=== PATIENT | female | born 1995 | race Caucasian/White ===

== ENCOUNTER → 2018-05-14 14:13 | Outpatient (CLI) | payer SELFPAY ==
[2018-05-14 20:21] LABS: Chlamydia Trachomatis by PCR Negative (Negative); Neisserai gonorrhoeae by PCR Negative (Negative); Probe Check PASS; Sample Adequacy Control PASS; Specimen Processing Control PASS
[2018-05-19 13:28] LABS: HPV Reflexed? NOT INDICATED
== END ==
PROVIDERS: Visit Provider Obstetrics & Gynecology
DX: Z12.4 Encounter for screening for malignant neoplasm of cervix (principal); Z11.3 Encounter for screening for infections with a predominantly sexual mode of transmission
CPT/HCPCS: 87491; 87591; 88175; G0145

== ENCOUNTER → 2018-06-11 10:26 | Outpatient (CLI) | payer SELFPAY ==
[2018-06-11 11:12] LABS: Absolute Lymphocyte Count 1.86 X10^3/ul (0.83-4.51); Absolute Neutrophil Count 5.8 X10^3/uL (2.0-7.7); Basophil# 0.01 X10^3/uL; Basophil% 0.1 % (0-1); Color, Urine Yellow (Yellow); Eosinophil# 0.05 X10^3/uL; Eosinophils% 0.6 % (0-5); Glucose, Dipstick Normal (Normal); Hematocrit 38.1 % (37-47); Hemoglobin 13.2 g/dl (12.0-15.0); Ketone-Dipstick Negative (Negative); Leukocyte Esterase-Dipstick Negative /ul (Negative); Lymphocyte # 1.86 X10^3/ul (4.0); Lymphocyte % 22.8 % (19-41); Mean Corp Hgb Conc 34.6 g/gl (32-36); Mean Corpuscular Hgb 28.8 pg (27.0-32.0); Mean Platelet Vol. 10.1 fl (6.2-12.0); Monocyte# 0.47 X10^3/uL; Monocyte% 5.8 % (0-10); Neutrophil # 5.75 X10^3/uL (2.7-7.7); Neutrophil % 70.6 % (47-70); Nitrite-Dipstick Negative (Negative); Occult Blood-Urine 10 /ul (Negative); Platelet Count 259 K/mm3 (150-450); Protein-Dipstick 15 mg/dl (Negative); RBC Distribution Width CV 13.1 % (11.6-14.6); RBC Distribution Width SD 39.6 fl (35.1-43.9); Red Blood Count 4.59 M/mm3 (4.2-5.4); Urine Bilirubin Dipstick Negative (Negative); Urine Clarity Clear (Clear); Urine Urobilinogen Normal (Normal); White Blood Count 8.2 K/mm3 (4.4-11.0)
[2018-06-11 11:14] LABS: POSITIVE COUNT NO; POSITIVE DIFFERENTIAL NO; POSITIVE MORPHOLOGY NO
[2018-06-11 11:34] LABS: Free T3 2.7 pg/mL (2.18-3.98); Glucose Challenge Gest 1H 50g 94 mg/dL (70-140); T4 Free Direct 0.84 ng/dL (0.76-1.46); Thyroid Stim Hormone (TSH) 1.28 uIU/mL (0.358-3.74)
[2018-06-11 12:14] LABS: HIV - WCH Non-Reactive (Nonreactive); Rubella IgG 315.8 IU/mL; Vitamin D,25 Hydroxy 43.8 ng/mL (29.95-100.01)
[2018-06-12 13:49] LABS: HEPATITIS B SURFACE AG Negative (Negative); Hep C Antibodies 0.1 s/co ratio (0.0-0.9)
[2018-06-16 13:21] LABS: HPV Reflexed? NOT INDICATED
[2018-06-18 01:33] LABS: Prenatal RPR NONREACTIVE (NONREACTIVE)
== END ==
LOC: WOBLAB 10:26 → LAB 12:13 → LABSPEC 12:14
PROVIDERS: Family Provider Family Medicine; PCP Family Medicine; Visit Provider Obstetrics & Gynecology
DX: Z12.4 Encounter for screening for malignant neoplasm of cervix (principal); Z34.81 Encounter for supervision of other normal pregnancy, first trimester
CPT/HCPCS: 36415; 81002; 82306; 82950; 84439; 84443; 84481; 85025; 86703; 86762; 86803; 87340; 88175; G0145

== ENCOUNTER → 2018-10-08 08:27 | Outpatient (CLI) | payer SELFPAY ==
[2018-10-08 11:06] LABS: Hematocrit 31.3 % (37-47); Hemoglobin 10.7 g/dl (12.0-15.0); Mean Corp Hgb Conc 34.2 g/gl (32-36); Mean Corpuscular Hgb 28.6 pg (27.0-32.0); Mean Corpuscular Volume 83.7 fL (81-99); Mean Platelet Vol. 10.5 fl (6.2-12.0); Platelet Count 237 K/mm3 (150-450); RBC Distribution Width CV 13.2 % (11.6-14.6); RBC Distribution Width SD 38.8 fl (35.1-43.9); Red Blood Count 3.74 M/mm3 (4.2-5.4); White Blood Count 8.8 K/mm3 (4.4-11.0)
[2018-10-08 11:08] LABS: Scan Indicated on CBC? Y/N NO
[2018-10-08 11:22] LABS: Free T3 2.4 pg/mL (2.18-3.98); Glucose Challenge Gest 1H 50g 99 mg/dL (70-140); Thyroid Stim Hormone (TSH) 3.37 uIU/mL (0.358-3.74)
--- OUTSIDE RECORDS SUMMARY | 2018-12-03 03:13 | XMS RPT_ITS ---
:1995 Author Organization OHIP Care Team Providers Name Role Phone Nelia Trejo Attending Unavailable Nelia Trejo Attending Unavailable Jett [facility] Unavailable Nelia Trejo Referring Unavailable Nelia Trejo Attending Unavailable PROBLEMS PROBLEMS DATE TYPE CONDITION / CODE ATTENDING STATUS SOURCE 10/08/2018 Unknown Z34.82 - Encounter Sabiha Trejo for supervision of [facility] other normal Hospital , second Repository trimester / Z34.82(ICD-10) 06/11/2018 Unknown Z12.4 - Encounter Sabiha Trejo for screening for [facility] malignant neoplasm Hospital of cervix / Repository Z12.4(ICD-10) 05/14/2018 Unknown Z32.01 - Encounter Sabiha Trejo for test, [facility] result positive / Hospital Z32.01(ICD-10) Repository 05/14/2018 Unknown Z11.3 - Encounter Sabiha Trejo for screening for [facility] infections with a Hospital predominantly Repository sexual mode of transmission / Z11.3(ICD-10) PROCEDURES PROCEDURES No Procedure Records FoundRESULTS RESULTS CBC-COMPLETE BLOOD CNT Collected: 10/08/2018 Status: F Source: ALICE NO DIFF 8:31 AM [facility] HOSPITAL REPOSITORY TYPE CODE TESTS RESULT OUT OF RANGE REFERENCE UNITS LAB L100.1000 4.4-11.0 K/mm3 Normal WBC 8.8 LAB L100.1200 4.2-5.4 M/mm3 Low RBC 3.74 LAB L100.1300 12.0-15.0 g/dl Low HGB 10.7 LAB L100.1400 37-47 % Low HCT 31.3 LAB L100.1500 81-99 fL Normal MCV 83.7 LAB L100.1600 27.0-32.0 pg Normal MCH 28.6 LAB L100.1700 32-36 g/gl Normal MCHC 34.2 LAB L100.1810 11.6-14.6 % Normal RDW CV 13.2 LAB L100.1820 35.1-43.9 fl Normal RDW SD 38.8 LAB L100.1900 150-450 K/mm3 Normal PLT 237 LAB L100.2000 6.2-12.0 fl Normal MPV 10.5 Performed By: #### L100.0500 #### [facility] [address] [place], [place], [address] GLUCOSE CHALLENGE GEST Collected: 10/08/2018 Status: F Source: ALICE 1H 50G 8:31 AM [facility] REPOSITORY TYPE CODE TESTS RESULT OUT OF RANGE REFERENCE UNITS LAB L501.0250 70-140 mg/dL Normal GLU GEST 99 50g 1H Performed By: #### L501.0250, L501.98983, L501.9520, L506.0400 #### [facility] [address] [place], [place], [address] FREE T3 Collected: 10/08/2018 Status: F Source: ALICE 8:31 AM [facility] REPOSITORY TYPE CODE TESTS RESULT OUT OF RANGE REFERENCE UNITS LAB L501.56396 2.18-3.98 pg/mL Normal FREE T3 2.4 Performed By: #### L501.0250, L501.25192, L501.9520, L506.0400 #### [facility] [address] [place], [place], [address] THYROID STIM HORMONE Collected: 10/08/2018 Status: F Source: ALICE (TSH) 8:31 AM [facility] REPOSITORY TYPE CODE TESTS RESULT OUT OF RANGE REFERENCE UNITS LAB L501.9520 0.358-3.74 uIU/mL Normal TSH 3.37 Performed By: #### L501.0250, L501.81025, L501.9520, L506.0400 #### [facility] [address] [place], [address] T4 FREE DIRECT Collected: 10/08/2018 Status: F Source: ALICE 8:31 AM [facility] REPOSITORY TYPE CODE TESTS RESULT OUT OF RANGE REFERENCE UNITS LAB L506.0400 0.76-1.46 ng/dL Normal T4 FREE 0.80 DIRECT Performed By: #### L501.0250, L501.89559, L501.9520, L506.0400 #### [facility] [address] [place], [address] URINALYSIS, ROUTINE Collected: 06/11/2018 Status: F Source: ALICE (DIPSTICK) 10:20 AM [facility] REPOSITORY Order Comment: How was Urine Obtained? CLEAN CATCH TYPE CODE TESTS RESULT OUT OF RANGE REFERENCE UNITS LAB L400.3000 Yellow COLOR Normal Yellow LAB L400.3050 Clear Normal CLARITY Clear LAB L400.3200 Normal mg/dl Normal GLUCOSE, UR Normal LAB L400.3300 Negative mg/dL Normal BILIRUBIN URINE Negative LAB L400.3400 Negative mg/dl Normal KETONE UR Negative LAB L400.3465 1.002-1.030 Normal SP.GR. DIPSTX 1.010 LAB L400.3550 5.0 - 8.0 pH UR Normal 7.0 LAB L400.3600 Negative mg/dl High PROT 15 DIPSTX LAB L400.3700 Normal mg/dl Normal UROBILI Normal LAB L400.3750 Negative Normal NITRITE UR Negative LAB L400.3780 Negative /ul High 10 OCCULT BLOOD-UR LAB L400.3800 Negative /ul LEUK Normal ESTERASE Negative Performed By: #### L400.2010 #### [facility] [address] [place], [address] CBC W/DIFF, AUTOMATED Collected: 06/11/2018 Status: F Source: ALICE 10:20 AM [facility] REPOSITORY TYPE CODE TESTS RESULT OUT OF RANGE REFERENCE UNITS LAB L100.1000 4.4-11.0 K/mm3 Normal WBC 8.2 LAB L100.1200 4.2-5.4 M/mm3 Normal RBC 4.59 LAB L100.1300 12.0-15.0 g/dl Normal HGB 13.2 LAB L100.1400 37-47 % Normal HCT 38.1 LAB L100.1500 81-99 fL Normal MCV 83.0 LAB L100.1600 27.0-32.0 pg Normal MCH 28.8 LAB L100.1700 32-36 g/gl Normal MCHC 34.6 LAB L100.1810 11.6-14.6 % Normal RDW CV 13.1 LAB L100.1820 35.1-43.9 fl Normal RDW SD 39.6 LAB L100.1900 150-450 K/mm3 Normal PLT 259 LAB L100.2000 6.2-12.0 fl Normal MPV 10.1 LAB L100.2100 47-70 % High NEUT% 70.6 LAB L100.2200 19-41 % Normal LY% 22.8 LAB L100.2300 0-10 % Normal MONO% 5.8 LAB L100.2400 0-5 % Normal EO% 0.6 LAB L100.2500 0-1 % Normal BASO% 0.1 LAB L100.2550 0.0-0.9 % Normal IM GRAN % 0.100 Result Comment: IG% - Immature Granulocytes (promyelocytes, myelocytes and metamyelocytes) > 1% indicates that a LEFT SHIFT is Present. LAB L100.2620 2.0-7.7 X10 3/uL Normal Absolute Neut 5.8 LAB L100.2720 0.83-4.51 X10 3/ul Normal Absolute Lymph 1.86 Performed By: #### L100.0100 #### [facility] [address] [place], [place], [address] GLUCOSE CHALLENGE GEST Collected: 06/11/2018 Status: F Source: ALICE 1H 50G 10:20 AM [facility] REPOSITORY TYPE CODE TESTS RESULT OUT OF RANGE REFERENCE UNITS LAB L501.0250 70-140 mg/dL Normal GLU GEST 94 50g 1H Performed By: #### L501.0250, L501.54392, L501.9520, L506.0400 #### [facility] [address] [place], [address] FREE T3 Collected: 06/11/2018 Status: F Source: ALICE 10:20 AM [facility] REPOSITORY TYPE CODE TESTS RESULT OUT OF RANGE REFERENCE UNITS LAB L501.66743 2.18-3.98 pg/mL Normal FREE T3 2.7 Performed By: #### L501.0250, L501.09866, L501.9520, L506.0400 #### [facility] [address] [place], [address] THYROID STIM HORMONE Collected: 06/11/2018 Status: F Source: ALICE (TSH) 10:20 AM [facility] REPOSITORY TYPE CODE TESTS RESULT OUT OF RANGE REFERENCE UNITS LAB L501.9520 0.358-3.74 uIU/mL Normal TSH 1.28 Performed By: #### L501.0250, L501.77116, L501.9520, L506.0400 #### [facility] [address] [place], [address] T4 FREE DIRECT Collected: 06/11/2018 Status: F Source: HOBART 10:20 AM [facility] REPOSITORY TYPE CODE TESTS RESULT OUT OF RANGE REFERENCE UNITS LAB L506.0400 0.76-1.46 ng/dL Normal T4 FREE 0.84 DIRECT Performed By: #### L501.0250, L501.10172, L501.9520, L506.0400 #### [facility] [address] [place], [address] T AND S-NO Collected: 06/11/2018 Status: F Source: ALICE CHARGE W/PNP 10:20 AM [facility] REPOSITORY Order Comment: Reason for Type AND Screen/Red Cells: Surgery? N TYPE CODE TESTS RESULT OUT OF RANGE REFERENCE UNITS LAB B10.0800 O Normal BLOOD POSITIVE TYPE GEL LAB B100.4050 Normal Ab SCREEN NEGATIVE GEL Performed By: #### B100.7550 #### [facility] [address] [place], [address] VITAMIN D,25 HYDROXY Collected: 06/11/2018 Status: F Source: ALICE 10:20 AM [facility] REPOSITORY TYPE CODE TESTS RESULT OUT OF RANGE REFERENCE UNITS LAB L506.1000 29.95-100.01 ng/mL Normal Vitamin D 43.8 25-OH Result Comment: Vitamin D 25(OH) Status Range Deficiency <20 ng/mL (50nmol/L) Insuffciency 20 - 30 ng/mL (50 - 75 nmol/L) Sufficiency 30 - 100 ng/mL (75 - 250 nmol/L) Toxicity >100 ng/mL (>250 nmol/L) Performed By: #### L506.1000, L509.4000, L3890.6005 #### [facility] [address] [place], [address] RUBELLA IGG Collected: 06/11/2018 Status: F Source: ALICE 10:20 AM [facility] REPOSITORY TYPE CODE TESTS RESULT OUT OF RANGE REFERENCE UNITS LAB L509.4000 IU/mL Normal Rubella IgG 315.8 Result Comment: Antibody results Interpretation of Immune Status < 5 IU/ml Presumed Non-immune 5 - < 10 IU/ml Equivocal > or = 10 IU/ml Presumed Immune Performed By: #### L506.1000, L509.4000, L3890.6005 #### [facility] [address] [place], [address] HIV - WCH Collected: 06/11/2018 Status: F Source: ALICE 10:20 AM [facility] REPOSITORY TYPE CODE TESTS RESULT OUT OF RANGE REFERENCE UNITS LAB L3890.6005 Nonreactive Normal HIV - [facility] Non-Reactive Performed By: #### L506.1000, L509.4000, L3890.6005 #### [facility] [address] [place], [address] HEPATITIS B SURFACE Collected: 06/11/2018 Status: F Source: ALICE AG 10:20 AM [facility] REPOSITORY TYPE CODE TESTS RESULT OUT OF RANGE REFERENCE UNITS LAB L3100.0400 Negative Normal HB Negative SURF AG Result Comment: Performed at: - [facility] [address] [id number] Carbon Brushes Assembler: Mike Griffin PhD, Phone: [phone] Performed By: #### L3100.0390, L3100.0625 #### [facility] (refer to report for specific site) refer to report for address and phone number HEPATITIS C ANTIBODIES Collected: 06/11/2018 Status: F Source: HOBART 10:20 AM [facility] REPOSITORY TYPE CODE TESTS RESULT OUT OF RANGE REFERENCE UNITS LAB L3100.0650 0.0-0.9 s/co ratio Normal HEP C AB 0.1 Result Comment: Negative: < 0.8 Indeterminate: 0.8 - 0.9 Positive: > 0.9 The CDC recommends that a positive HCV antibody result be followed up with a HCV Nucleic Acid Amplification test (780227). Performed By: #### L3100.0390, L3100.0625 #### [facility] (refer to report for specific site) refer to report for address and phone number RPR Collected: 06/11/2018 Status: F Source: HOBART 10:20 AM [facility] REPOSITORY TYPE CODE TESTS RESULT OUT OF REFERENCE UNITS RANGE LAB L700.5100 NONREACTIVE Normal RPR NONREACTIVE Performed By: #### L700.5100 #### [facility] [address] [place], [address] PAP I-G W/RFX Collected: 06/11/2018 Status: F Source: HOBART HRHPV-APTIMA 9:20 AM [facility] REPOSITORY Order Comment: CYTOLOGY INFORMATION: - CLINICAL INFORMATION: - DATE LMP/MENOPAUSE: LMP 03/22/18 - COLLECTION VIAL: Thin Prep Vial - APARTMENT COMMUNITY MANAGER SOURCE: CERVICAL/ENDOCERVICAL - COLLECTION TECHNIQUE: BRUSH/SPATULA Specimen Comment: [id number] Specimen Comment: No. of containers..01 ThinPrep Vial TYPE CODE TESTS RESULT OUT OF RANGE REFERENCE UNITS LAB L7400.0800 . Normal DIAGN Comment Result Comment: NEGATIVE FOR INTRAEPITHELIAL LESION AND MALIGNANCY. LAB L7400.0900 . Normal ADEQ Comment Result Comment: Satisfactory for evaluation. Endocervical and/or squamous metaplastic cells (endocervical component) are present. LAB L7400.1400 . Normal PERFORM Comment Result Comment: Isabela Ordoñez, Skating Rink Manager (ASCP) LAB L7400.2575 . Normal TEST METHOD Comment Result Comment: This liquid based ThinPrep(R) pap test was screened with the use of an image guided system. LAB L7400.2600 . Normal . COMM LAB L7400.2700 . Normal PAPSMR Comment Result Comment: The Pap smear is a screening test designed to aid in the detection of premalignant and malignant conditions of the uterine cervix. It is not a diagnostic procedure and should not be used as the sole means of detecting cervical cancer. Both false-positive and false-negative reports do occur. LAB L7400.2800 . Normal HPV RFLX Comment Result Comment: The HPV DNA reflex criteria were not met with this specimen result therefore, no HPV testing was performed. Performed at: [facility] [id number] [employer] Brushes Assembler: Bernie Landa MD, Phone: [phone] Performed By: #### L7400.0353 #### [facility]er [facility] for [facility] refer to report for address and phone number CT/NG WCH BY PCR Collected: 05/14/2018 Status: F Source: HOBART 10:10 AM [facility] REPOSITORY TYPE CODE TESTS RESULT OUT OF RANGE REFERENCE UNITS LAB L8200.2100 Negative Normal Chlam Negative Trac PCR LAB L8200.2200 Negative Normal NG by Negative PCR Performed By: #### L8200.2000 #### [facility] [address] [place], [place], [address] PAP I-G W/RFX Collected: 05/14/2018 Status: F Source: HOBART HRHPV-APTIMA 10:10 AM [facility] REPOSITORY Order Comment: CYTOLOGY INFORMATION: - CLINICAL INFORMATION: - DATE LMP/MENOPAUSE: 03/12/18 LMP - COLLECTION VIAL: Thin Prep Vial - APARTMENT COMMUNITY MANAGER SOURCE: CERVICAL/ENDOCERVICAL - COLLECTION TECHNIQUE: BRUSH/SPATULA Specimen Comment: [id number] Specimen Comment: No. of containers..01 ThinPrep Vial TYPE CODE TESTS RESULT OUT OF RANGE REFERENCE UNITS LAB L7400.0800 . Normal DIAGN Comment Result Comment: UNSATISFACTORY FOR EVALUATION. LAB L7400.0900 . Normal ADEQ Comment Result Comment: Specimen processed and examined but unsatisfactory for evaluation of epithelial abnormality because of insufficient cellularity. LAB L7400.1300 . Normal RECOMM Comment Result Comment: Suggest follow up as clinically appropriate. LAB L7400.1400 . Normal PERFORM Comment Result Comment: Nish Umana, Skating Rink Manager (ASC) LAB L7400.1500 . Normal QC Comment REV Result Comment: Amy Santamaria, Supervisory Skating Rink Manager ([facility]) LAB L7400.2575 . Normal TEST METHOD Comment Result Comment: This liquid based ThinPrep(R) pap test was screened with the use of an image guided system. LAB L7400.2600 . Normal . COMM LAB L7400.2700 . Normal PAPSMR Comment Result Comment: The Pap smear is a screening test designed to aid in the detection of premalignant and malignant conditions of the uterine cervix. It is not a diagnostic procedure and should not be used as the sole means of detecting cervical cancer. Both false-positive and false-negative reports do occur. LAB L7400.2800 . Normal HPV RFLX Comment Result Comment: The HPV DNA reflex criteria were not met with this specimen result therefore, no HPV testing was performed. Performed at: [address] [id number] Carbon Brushes Assembler: Bernie Landa MD, Phone: [phone] Performed By: #### L7400.0353 #### [facility] (refer to report for specific site) refer to report for address and phone number ALLERGIES ALLERGIES No Allergies Records FoundENCOUNTERS ENCOUNTERS ADMIT/DISCHARGE ACCOUNT ADMITTING ENCOUNTER LOCATION SOURCE NUMBER CLASS 10/08/2018 [id number] Ambulatory [facility] 7 [facility] ing:WOBLAB Repository 06/11/2018 [id number] [facility] 2 [facility] ing:[facility] Repository 05/14/2018 [id number] [facility] 6 [facility] ing:[facility] Repository PAYERS PAYERS ENCOUNTER GUARANTOR PAYER SUBSCRIBER SOURCE 10/08/2018 [facility] [place] [id number] Insurance:SELF PAY [facility], [place] Number: Effective Repository [id number]: [phone]) Date:2018-10-08 [id number] () 06/11/2018 CARIE Khan Primary NOT GIVENUNK [place] [id number] Insurance:SELF PAY [facility], [place] Number: Effective Repository [phone]: [phone] Date:2018-06-11 [id number] () 05/14/2018 CARIE Khan Primary NOT GIVENUNK [place] [id number] Insurance:SELF PAY [facility] Number: Effective Repository [phone]: [phone] Date:2018-05-14 [id number] ()
== END ==
PROVIDERS: Visit Provider Obstetrics & Gynecology
DX: Z34.82 Encounter for supervision of other normal pregnancy, second trimester (principal)
CPT/HCPCS: 36415; 82950; 84439; 84443; 84481; 85027

== ENCOUNTER → 2018-11-08 14:45 | Outpatient (CLI) | payer SELFPAY ==
[2018-11-08 16:24] LABS: Free T3 2.5 pg/mL (2.18-3.98); T4 Free Direct 0.94 ng/dL (0.76-1.46); Thyroid Stim Hormone (TSH) 1.83 uIU/mL (0.358-3.74)
== END ==
PROVIDERS: Visit Provider Obstetrics & Gynecology
DX: O99.283 Endocrine, nutritional and metabolic diseases complicating pregnancy, third trimester (principal); E03.9 Hypothyroidism, unspecified; Z3A.00 Weeks of gestation of pregnancy not specified
CPT/HCPCS: 36415; 84439; 84443; 84481

== ENCOUNTER → 2018-11-22 16:54 | Outpatient (CLI) | payer SELFPAY | PROVIDERS: Visit Provider Obstetrics & Gynecology | DX: Z36.85 Encounter for antenatal screening for Streptococcus B (principal) | CPT/HCPCS: 87081 ==

== ENCOUNTER → 2018-12-13 16:57 | Outpatient (CLI) | payer SELFPAY ==
[2018-12-13 17:24] LABS: Protein, Urine (Random) 15.1 mg/dL (<11.9)
== END ==
PROVIDERS: Visit Provider Obstetrics & Gynecology
DX: Z34.83 Encounter for supervision of other normal pregnancy, third trimester (principal)
CPT/HCPCS: 82570; 84156

== ENCOUNTER 2018-12-17 10:30 | Inpatient (IN) | payer SELFPAY ==
[2018-12-17 10:40] VITALS: O2SAT 94
[2018-12-17] MEDS: Lactated Ringers 1,000 ML 50 ML IV (10:45)
[2018-12-17 11:15] VITALS: BMI 51.2
[2018-12-17 11:37] LABS: Mean Corp Hgb Conc 33.3 g/gl (32-36); Mean Corpuscular Hgb 28.1 pg (27.0-32.0); Mean Corpuscular Volume 84.3 fL (81-99); Mean Platelet Vol. 10.4 fl (6.2-12.0); Platelet Count 239 K/mm3 (150-450); RBC Distribution Width CV 13.6 % (11.6-14.6); RBC Distribution Width SD 39.7 fl (35.1-43.9); Red Blood Count 3.56 M/mm3 (4.2-5.4); Scan Indicated on CBC? Y/N NO; White Blood Count 8.8 K/mm3 (4.4-11.0)
[2018-12-17 11:44] LABS: International Normalized Ratio 0.9; Prothrombin Time (Protime)PT. 12.6 SECONDS (11.7-14.9)
[2018-12-17 11:45] LABS: Partial Thromboplast Time 30.4 Seconds (24.1-36.2)
[2018-12-17] MEDS: miSOPROStol 25 MCG TABLET PO ×3 (11:52→16:24)
[2018-12-17 12:04] LABS: AST(SGOT) 13 U/L (15-37); Alanine Aminotransfer ALT/SGPT 18 U/L (13-56); Creatinine, Serum 0.77 mg/dL (0.55-1.02); EST Glomerular Filtration Rate 100 mL/min (>60); Est Glom Filt Rate - Afr Amer 121 mL/min (>60); Estimated Creatinine Clearance 111.44 ml/min; Uric Acid 4.6 mg/dL (2.6-6.0)
[2018-12-17 13:53] LABS: Protein, Urine (Random) 7.3 mg/dL (<11.9); Protein:Creat Ratio 174 mg/g CRE (0-200)
--- NOTE | 2018-12-17 16:10 | PCM.HP.OB ---
- Problem List (1) 39 weeks gestation of Status: Acute (2) Gestational hypertension Status: Acute Qualifiers: Trimester: third trimester Qualified Code(s): O13.3 - Gestational [-induced] hypertension without significant proteinuria, third trimester History Date of Admission: 12/17/18 Final PALMA: 12/20/18 Gestational age: 39 Weeks and 4 Days History of this : This is a 23 year-old, G [1], P [0], at 39 weeks gestational age presents for induction of labor for gestational hypertension. Medical History: Medical History (Last Updated 12/17/18 @ 16:12 by Nelia Trejo MD) History of gluten sensitivity Hypothyroidism E03.9 Allergies No Known Allergies Allergy (Verified 12/17/18 11:15) Home Medications: Home Medications Levothyroxine [Synthroid] 75 mcg PO DAILY 12/17/18 Vits [Prenatabs FA ] 1 tab PO DAILY 12/17/18 Smoking Status: Former smoker Alcohol: None Number of Fetus(es): 1 Heart Tracin, moderate variability, + accelerations, no decelerations. TOCO Analysis: no contractions History Past Pregnancies: Past Pregnancies Delivery Date Name GA/Weeks Outcome Route Weight Infant Gender Labor Length Anesthesia Delivery Location Provider FOB Labs: Mom's Problem List Problem Status Onset Code 39 weeks gestation of Acute Z3A.39 Gestational hypertension Acute O13.9 Mom's Labs & Results 12/17/18 12/17/18 12/17/18 10:45 10:45 10:45 WBC 8.8 RBC 3.56 L Hgb 10.0 L Hct 30.0 L MCV 84.3 MCH 28.1 MCHC 33.3 RDW 13.6 RDW Differential 39.7 Plt Count 239 MPV 10.4 PT 12.6 INR 0.9 APTT 30.4 Creatinine Estim Creat Clear Calc Est GFR (MDRD) Af Amer Est GFR (MDRD) Non-Af Uric Acid AST ALT U Random Total Protein Urine Creatinine Protein/Creatinin Ratio Blood Type O POSITIVE Antibody Screen NEGATIVE 12/17/18 12/17/18 10:45 13:15 WBC RBC Hgb Hct MCV MCH MCHC RDW RDW Differential Plt Count MPV PT INR APTT Creatinine 0.77 Estim Creat Clear Calc 111.44 Est GFR (MDRD) Af Amer 121 Est GFR (MDRD) Non-Af 100 Uric Acid 4.6 AST 13 L ALT 18 U Random Total Protein 7.3 Urine Creatinine 41.90 Protein/Creatinin Ratio 174 Blood Type Antibody Screen Course Did the patient receive Yes care? Labs Blood Type: O RH: POSITIVE RPR/VDRL/Syphilis Nonreactive Rubella status Immune HbSAg Negative Date Done: 06/11/18 Chlamydia Negative Gonorrhea Negative HIV/AIDS Non-Reactive Group B Strep: Negative Current Obstetrical History Gestational Diabetes No Incompetent Cervix No Infertility No IUGR No Macrosomia No Hypertension/Pre-eclampsia Yes: no medication Placenta Previa/Abruption No PTL/PROM No Uterine anomaly No Oligohydramnios No Polyhydramnios No Multiple gestation No Past Medical History Asthma No Diabetes No Hypertension No Heart disease No Mitral valve prolapse No Neurologic/Seizure disorder/ No Migraines Kidney disease No Liver disease No Varicosities No Clotting disorders/Hx of DVT No Thyroid Dysfunction Yes: Hypothyroidism, on synthroid Other medical diseases No Psychiatric disorders No Major trauma No Abnormal PAP smear No Sleep apnea No Mammogram in the last 2 years No Social History Marital Status: Alleged father Basim Camargo Hx Smoking Yes Smoking Status Former smoker Expected Infant Delivery Method: Spontaneous Vaginal Describe any other labor & delivery plans:: continuous monitoring Number of Visits: 12 Review of Systems HEENT: Denies: Visual Changes Cardiovascular: Reports: Edema Gastrointestinal: Denies: Abdominal Pain, Nausea, Vomiting Gynecological: Reports: - - cramping. Denies: Vaginal bleeding Neurological: Denies: Headaches Physical Exam Vitals: Vital Signs Pulse Ox 94 12/17/18 10:40 General: Alert, Oriented x3, Cooperative, No apparent distress HEENT: Atraumatic, Normocephalic Cardiovascular: Regular rate, Regular Rhythm Lungs: Normal air movement Abdomen: Soft, Non Tender, Non-Distended, Gravid Extremities:: Other - +2 b/l LE edema, no clonus, + 2 b/l LE DTRs Neurological: Neuro grossly intact Presentation: Cephalic Cervix Dilation (cm): 1 Station: -3 Effacement (%): 0 - firm, posterior Assessment/Plan All Active Problems 39 weeks gestation of (Acute) Gestational hypertension (Acute) This is a 23 year-old, G [1], P [0], at 39 weeks gestational age with gestational hypertension, Cat I FHR -Admit for induction -No evidence of preeclampsia -Cytotec for unfavorable cervix
[2018-12-17] MEDS: 0.9% Saline Lock 10 ML Syringe IV (21:54)
[2018-12-17] MEDS: 0.9% Normal Saline 100 ML IV.SOLN. INTRA-UTER (22:00)
[2018-12-17] MEDS: miSOPROStol 50 MCG TABLET PO (23:32)
[2018-12-18] MEDS: DiphenhydrAMINE 25 MG Capsule 50 MG PO (00:26)
[2018-12-18] MEDS: Oxytocin 30 units/NS 500 ml 30 UNITS/500 ML IV.SOLN IV ×2 (05:56→22:35)
[2018-12-18] MEDS: 0.9% Saline Lock 10 ML Syringe IV (05:58)
[2018-12-18] MEDS: Levothyroxine 75 MCG Tablet PO (07:02)
[2018-12-18 09:27] LABS: ROM Internal Control Test YES-OK TO RESULT pt. (Internal QC)
[2018-12-18 09:28] LABS: ROM Patient Test POSITIVE (Negative); Record Kit Lot#, ROM+ J7836
--- NOTE | 2018-12-18 11:31 | PCM.PN.BLA ---
Progress Note LABOR PROGRESS NOTE Patient willing to reattempt collins bulb. AVSS GEN - NAD, AAO x 3 FHR 135, moderate variability, + accelerations, no decelerations TOCO 2/10 min SVE 1.5/50/-3, moderate and midposition AP: 23yo G1 @ 39 5/7wga, IOL for gHTN on pitocin, Cat I FHR -ROM plus positive -Collins bulb placed - 30cc of NS, pt tolerated placement well. -Will continue pitocin in interim.
--- NOTE | 2018-12-18 11:38 | PCM.PN.BLA ---
Progress Note PROGRESS NOTE Denies headache, vision changes, shortness of breath. Has mild contractions. No further leaking of fluid. AVSS GEN - NAD, AAO x 3 FHR 135, moderate variability, + accelerations, no decelerations TOCO 2/10 min SVE 1.5/50/-3, moderate and midposition A/P: 23yo G1 @ 39 5/7wga, IOL for ghtn -No si/sx preeclampsia -No further fluid leaking noted by patient or nursing staff since last exam. Will send ROM plus and if negative, consider induction break if reaches 20mu/min pitocin. If positive, will consider reattempting collins bulb.
[2018-12-18] MEDS: Lactated Ringers 1,000 ML 50 ML IV (15:35)
--- NOTE | 2018-12-18 21:57 | PCM.PN.BLA ---
Progress Note LABOR PROGRESS NOTE Dorothy reports fatigue. OOB. Denies headache, vision changes, upper abdominal pain, SOB. + contractions are mild. AVSS GEN - NAD, AAO x 3 FHR 135, moderate variability, + accelerations, no decelerations TOCO 2-3/10 min SVE 4.5/60/-3 approx 1h ago per RN exam A/P: 23yo G1 @ 39 5/7wga, IOL for gHTN -s/p misoprostol, collins bulb on pitocin -Discussed with patient indications for section for failed induction. At this time, given pitocin 20mu/min for several hours I recommend pitocin break. r/b reviewed. Following discussion, pt in agreement. Will d/c and resume later this evening. -Reviewed si/sx preeclampsia. -Maternal and statuses reassuring
[2018-12-19] VITALS (27 sets, daily range): BP systolic 67–176; BP diastolic 38–109; PULSE 93–120; RESP 17–22; TEMP 36.1–37.4; O2SAT 93–100
[2018-12-19] MEDS: Labetalol 200 MG Tablet PO (05:09)
[2018-12-19] MEDS: Labetalol 20 MG/4 ML Vial IV (06:23)
--- NOTE | 2018-12-19 06:23 | PCM.PN.BLA ---
Progress Note LABOR PROGRESS NOTE Dorothy relates she feels contractions in her lower back and she is uncomfortable. Denies headache, vision changes. BP 165-180/88-99 HR 97-15 GEN - appears uncomfortable with contractions, AAO x 3 FHR 150, moderate variability, + accelerations, + variable decelerations TOCO 3-4/10 min SVE deferred A/P: 23yo G1 @ 39 6/7wga, IOL for gHTN with worsening BPs - likely preeclampsia, on pitocin with SROM, Cat I-II FHR -I reviewed with pt increased risk for stroke and seizure associated with persistently elevated BPs. Hypertensive protocol initiated with IV and PO Labetalol. Magnesium 6g/2g started for seizure prophylaxis. Patient reports understanding and given opportunity to ask questions and is in agreement with plan of care. -Nitrous oxide for pain per patient request -Will monitor blood pressures closely - status overall reassuring -Will repeat exam after administering magnesium, labetalol.
[2018-12-19] MEDS: Magnesium Sulfate 20 GM/500 ML BAG IV ×2 (06:55→17:06)
[2018-12-19] MEDS: 0.9% Saline Lock 10 ML Syringe IV (07:20)
[2018-12-19] MEDS: Acetaminophen 500 MG Tablet 1000 MG PO (09:09)
--- NOTE | 2018-12-19 10:43 | PCM.PN.BLA ---
Progress Note LABOR PROGRESS NOTE 23yo G1 @ 38 6/7wga, IOL for elevated BPs with preeclampsia on Magnesium and IV antibiotics for likely chorioamnionitis. Notified by RN previously that patient the fever. Given prolonged rupture and fever, IV Gentamicin, Ampicillin was started. Her temperature remained elevated and worsening despite Tylenol with heart rate changes. On my recent arrival to room, pt is without complaints concerning for preeclampsia. FHR tracing was 160, moderate variability with late decelerations present - Category II and cervix remains unchanged at 4/70/-3. BP 139/60. I reviewed findings with patient and . Given remote from delivery I advised section for chorioamnionitis with Category II heart rate tracing and failed induction. Pitocin discontinued. Reviewed with patient benefits and risks including pain, bleeding, hemorrhage, need for further surgery possibly requiring dilation and curettage or hysterectomy, infection, bowel or bladder injury, scarring, nerve injury, need for further surgery, TTN. Patient and in agreement with plan and questions answered to their satisfaction.
[2018-12-19] MEDS: Sodium Citrate/Citric Acid 30 ML UDC PO (10:50)
[2018-12-19] MEDS: Oxytocin 30 units/NS 500 ml 30 UNITS/500 ML IV.SOLN 167 UNITS IV (11:26)
[2018-12-19] MEDS: Carboprost Tromethamine 250 MCG/ML Ampul IM (11:29)
[2018-12-19] MEDS: Ondansetron 4 MG/2 ML Vial IV (11:30)
[2018-12-19] MEDS: Ketorolac 30 MG/ML Syringe IV (11:50)
--- NOTE | 2018-12-19 12:38 | PCM.OB.CSR ---
- Problem List (1) 39 weeks gestation of Status: Acute (2) Preeclampsia Status: Acute Qualifiers: Trimester: third trimester Qualified Code(s): O14.93 - Unspecified pre-eclampsia, third trimester Comment: severe features (3) Chorioamnionitis Status: Acute Qualifiers: Fetus number: single or unspecified fetus Trimester: third trimester Qualified Code(s): O41.1230 - Chorioamnionitis, third trimester, not applicable or unspecified Comment: intra-amnionic inflammation and suspected infection (4) Failed induction of labor Status: Acute Delivery Classification: MALINDA Final PALMA: 12/20/18 Gestational age: 39 Weeks and 6 Days doctor who attended delivery (if requested by OB): Maria E Rouse Indications: 23-year-old 1 presented at 39-4/7 weeks gestational age for induction of labor for gestational hypertension. She had received Cytotec followed by Pitocin and Rajan bulb with spontaneous rupture of membranes. She progressed to 4 cm dilation 70% effacement and -3 station however had no further dilatation over approximately 16 hours following Rajan bulb expulsion. During the course of her labor her elevated blood pressures have progressed to severe range and she started on IV magnesium for preeclampsia and she had also developed high-grade fever without defervescence despite Tylenol and antibiotic therapy. She was advised to proceed with section given the extent of her medical conditions and remoteness from delivery with no advanced treatment into active labor. Risks, benefits, indications of procedure were reviewed and informed consent obtained. Indications for : Failed Induction, Suspected chorioamniotis Description of Procedure: Procedure: The patient was taken to the operating room and spinal analgesia was administered. She is placed in a dorsal supine position with left lateral tilt. The perineum and abdomen were prepped and draped in sterile fashion. And the spinal was found to be adequate. A Pfannenstiel incision was made using a scalpel and brought down to incise the subcutaneous tissue and rectus fascia at the midline. Subcutaneous tissue was bluntly dissected off the fascia laterally. The fascial incision was dissected laterally and cephalad using curved Maher scissors. The superior leaflet of the rectus fascia was grasped using Lloyd clamps and bluntly dissected and sharply dissected from the underlying rectus muscle. In a similar fashion the inferior rectus fascia was dissected from the underlying muscle. The rectus muscles were bluntly at the midline. The peritoneum was identified and entered [sharply]. The bladder blade was placed into the abdomen and the vesicouterine peritoneal fold identified. The fold was incised and a bladder flap created. Bladder blade was then repositioned to the abdomen. A low transverse hysterotomy was made using the [Metzenbaum scissors] to level of the membranes. The hysterotomy was extended bluntly cephalad and caudad. The membranes were then ruptured revealing clear fluid. The head was elevated and brought to the level of the hysterotomy; there was difficulty delivering thus a Kiwi was placed at the flexion point and 500 mmHg suction applied. With a single pull the head delivered. The suction was released and the vacuum removed. The mouth and nares were suctioned. The shoulders delivered with ease revealing a female . The cord was doubly clamped and cut and The infant was passed to awaiting [nursery personnel]. The placenta was [expressed] from the uterus and appeared intact on inspection. The uterus was cleared of debris. The hysterotomy was then repaired using 0 Vicryl running lock suture. Patient was given a dose of IM Hemabate in addition to standard IV Pitocin as she was on IV magnesium. A second imbricating layer was also placed for additional hemostasis. The bladder blade was removed. The anterior cul-de-sac was cleared of debris. The peritoneum was reapproximated using 2-0 Vicryl running suture. The rectus fascia was closed using 0 strata fix running suture. The subcutaneous tissue was reapproximated using 2-0 Vicryl. The skin was closed using 3-0 Monocryl subcuticularly by the COLORING CHECKER under my supervision. A Mepilex occlusive dressing was placed over the incision. The fundus was firm. The patient was then transferred to the recovery room without complication. Sponge, instrument, and needle counts were correct ?2. Amniotic Membrane Rupture Type: Spontaneous Amniotic Fluid Description: Clear Placenta Disposition: [facility] Specimen(s) sent to pathology: Placenta Drain: Rajan to straight drain Fluids Replaced: 1000 mL Cord Entanglement: None Nuchal Cord Compression: Without compression Cord Vessel Description: 3 Vessels Esitmated Blood Loss (ml): 600 mL Infant Gender: Female (1 minute): 2 (5 minute): 9 - 9 at 10 minutes Delayed cord clamping: No Pre-op Antibiotic Given: - - Ancef 3g IV Pt instructed on risks of surgery: Bleeding, Anesthesia Risks, Infection, Injury to surrounding structure(s) including bowel and bladder Complications: None - Admit VTE Documentation VTE Present on Admission: No VTE Mechan Device Prophylaxis: SCD's VTE Pharm Prophylaxis ordered?: No
--- NOTE | 2018-12-19 12:43 | OP.PCM_ITS ---
- Problem List (1) 39 weeks gestation of Status: Acute (2) Preeclampsia Status: Acute Qualifiers: Trimester: third trimester Qualified Code(s): O14.93 - Unspecified pre- eclampsia, third trimester Comment: severe features (3) Chorioamnionitis Status: Acute Qualifiers: Fetus number: single or unspecified fetus Trimester: third trimester Qualified Code(s): O41.1230 - Chorioamnionitis, third trimester, not applicable or unspecified Comment: intra-amnionic inflammation and suspected infection (4) Failed induction of labor Status: Acute Delivery Classification: MALINDA Final PALMA: 12/20/18 Gestational age: 39 Weeks and 6 Days [place] doctor who attended delivery (if requested by OB): Maria E Rouse Indications: 23-year-old 1 presented at 39-4/7 weeks gestational age for induction of labor for gestational hypertension. She had received Cytotec followed by Pitocin and Rajan bulb with spontaneous rupture of membranes. She progressed to 4 cm dilation 70% effacement and -3 station however had no further dilatation over approximately 16 hours following Rajan bulb expulsion. During the course of her labor her elevated blood pressures have progressed to severe range and she started on IV magnesium for preeclampsia and she had also developed high- grade fever without defervescence despite Tylenol and antibiotic therapy. She was advised to proceed with section given the extent of her medical conditions and remoteness from delivery with no advanced treatment into active labor. Risks, benefits, indications of procedure were reviewed and informed consent obtained. Indications for : Failed Induction, Suspected chorioamniotis Description of Procedure: Procedure: The patient was taken to the operating room and spinal analgesia was administered. She is placed in a dorsal supine position with left lateral tilt. The perineum and abdomen were prepped and draped in sterile fashion. And the spinal was found to be adequate. A Pfannenstiel incision was made using a scalpel and brought down to incise the subcutaneous tissue and rectus fascia at the midline. Subcutaneous tissue was bluntly dissected off the fascia laterally. The fascial incision was dissected laterally and cephalad using curved Maher scissors. The superior leaflet of the rectus fascia was grasped using Lloyd clamps and bluntly dissected and sharply dissected from the unde rlying rectus muscle. In a similar fashion the inferior rectus fascia was dissected from the underlying muscle. The rectus muscles were bluntly at the midline. The peritoneum was identified and entered [sharply]. The bladder blade was placed into the abdomen and the vesicouterine peritoneal fold identified. The fold was incised and a bladder flap created. Bladder blade was then repositioned to the abdomen. A low transverse hysterotomy was made using the [Metzenbaum scissors] to level of the membranes. The hysterotomy was extended bluntly cephalad and caudad. The membranes were then ruptured revealing clear fluid. The head was elevated and brought to the level of the hysterotomy; there was difficulty delivering thus a Kiwi was placed at the flexion point and 500 mmHg suction applied. With a single pull the infant head delivered. The suction was released and the vacuum removed. The mouth and nares were suctioned. The shoulders delivered with ease revealing a female infant. The cord was doubly clamped and cut and The infant was passed to awaiting [nursery personnel]. The placenta was [expressed] from the uterus and appeared intact on inspection. The uterus was cleared of debris. The hysterotomy was then repaired using 0 Vicryl running lock suture. Patient was given a dose of IM Hemabate in addition to standard IV Pitocin as she was on IV magnesium. A second imbricating layer was also placed for additional hemostasis. The bladder blade was removed. The anterior cul-de-sac was cleared of debris. The peritoneum was reapproximated using 2-0 Vicryl running suture. The rectus fascia was closed using 0 strata fix running suture. The subcutaneous tissue was reapproximated using 2-0 Vicryl. The skin was closed using 3-0 Monocryl subcuticularly by the OFFICE WORKER under my supervision. A Mepilex occlusive dressing was placed over the incision. The fundus was firm. The patient was then transferred to the recovery room without compl ication. Sponge, instrument, and needle counts were correct ?2. Amniotic Membrane Rupture Type: Spontaneous Amniotic Fluid Description: Clear Placenta Disposition: [facility] Specimen(s) sent to pathology: Placenta Drain: Rajan to straight drain Fluids Replaced: 1000 mL Cord Entanglement: None Nuchal Cord Compression: Without compression Cord Vessel Description: 3 Vessels Esitmated Blood Loss (ml): 600 mL Gender: Female (1 minute): 2 (5 minute): 9 - 9 at 10 minutes Delayed cord clamping: No Pre-op Antibiotic Given: - - Ancef 3g IV Pt instructed on risks of surgery: Bleeding, Anesthesia Risks, Infection, Injury to surrounding structure(s) including bowel and bladder Complications: None - Admit VTE Documentation VTE Present on Admission: No VTE Mechan Device Prophylaxis: SCD's VTE Pharm Prophylaxis ordered?: No
--- NOTE | 2018-12-19 13:36 | NURSING ---
epidural catheter d/c'd with blue tip intact
[2018-12-19] MEDS: Lactated Ringers 1,000 ML 100 ML IV ×2 (15:20→22:32)
[2018-12-19] MEDS: oxyCODONE 5 MG Tablet PO ×2 (17:23→21:33)
--- NOTE | 2018-12-19 18:17 | PCM.PN.BLA ---
Progress Note PROGRESS NOTE Notified by RN patient with hemorrhage. On my arrival patient supine, AVSS with fundus elevated and above umbilicus. I performed intrauterine exam, which was poorly tolerated with retrieval of few clots. Total EBL prior to my arrival and following my exam was approximately 1500ml with no active bleeding appreciated. Given patient painful and the presence of hematocolpos I advised EUA with evacuation of clots, dilation and curettage. Reviewed with patient at length risks, benefits including pain, bleeding, infection, hemorrhage, uterine perforation, scarring, need for possible laparotomy, possible hysterectomy. Patient was agreeable to proceed and consents were signed. T&S, T&C, coags and CBC pending. Pt given second dose of hemabate (single dose given in OR at time of delivery) and buccal cytotec.
[2018-12-19] MEDS: Oxytocin 30 units/NS 500 ml 30 UNITS/500 ML IV.SOLN 334 UNITS IV (18:45)
[2018-12-19 19:10] LABS: Absolute Lymphocyte Count 1.07 X10^3/ul (0.83-4.51); Absolute Neutrophil Count 17.4 X10^3/uL (2.0-7.7); Basophil# 0.01 X10^3/uL; Basophil% 0.1 % (0-1); Eosinophil# 0.01 X10^3/uL; Eosinophils% 0.1 % (0-5); Hematocrit 27.5 % (37-47); Lymphocyte # 1.07 X10^3/ul (4.0); Lymphocyte % 5.4 % (19-41); Mean Corp Hgb Conc 32.7 g/gl (32-36); Mean Corpuscular Hgb 28.4 pg (27.0-32.0); Mean Corpuscular Volume 86.8 fL (81-99); Mean Platelet Vol. 10.7 fl (6.2-12.0); Monocyte# 1.33 X10^3/uL; Monocyte% 6.7 % (0-10); Neutrophil # 17.37 X10^3/uL (2.7-7.7); Neutrophil % 87.5 % (47-70); POSITIVE COUNT NO; POSITIVE DIFFERENTIAL NO; POSITIVE MORPHOLOGY NO; Platelet Count 258 K/mm3 (150-450); RBC Distribution Width CV 14.1 % (11.6-14.6); RBC Distribution Width SD 42.3 fl (35.1-43.9); Red Blood Count 3.17 M/mm3 (4.2-5.4); White Blood Count 19.8 K/mm3 (4.4-11.0)
[2018-12-19 19:11] LABS: Anion Gap 10 (5-15); BUN 4 mg/dL (7-18); Calcium,Total 7.3 mg/dL (8.5-10.1); Chloride 110 mmol/L (98-107); EST Glomerular Filtration Rate 95 mL/min (>60); Est Glom Filt Rate - Afr Amer 115 mL/min (>60); Estimated Creatinine Clearance 107.27 ml/min; Glucose 130 mg/dL (74-106); Potassium 3.2 mmol/L (3.5-5.1); Sodium Level 141 mmol/L (136-145)
[2018-12-19 19:15] LABS: Fibrinogen 443 mg/dl (203-444); International Normalized Ratio 1.2; Partial Thromboplast Time 33.7 Seconds (24.1-36.2); Prothrombin Time (Protime)PT. 14.7 SECONDS (11.7-14.9)
--- NOTE | 2018-12-19 20:23 | OP.PCM_ITS ---
Problem List (1) Preeclampsia Status: Acute Qualifiers: Trimester: third trimester Qualified Code(s): O14.93 - Unspecified pre- eclampsia, third trimester Comment: severe features (2) hemorrhage Status: Acute Qualifiers: hemorrhage type: unspecified Qualified Code(s): O72.1 - Other immediate hemorrhage Report of Operation Date of Procedure: 12/19/18 Pre-Operative Diagnosis: s/p section, hemorrhage with hematocolpos Post-Operative Diagnosis: s/p section, hemorrhage with hematocolpos Surgery/Procedure Performed:: Examination under anesthesia, dilation and curettage Description of Surgical Findings:: Hematocolpos Type of Anesthesia:: MAC Anesthesiologist: Elena Barraza Special Medications: IV pitocin Drains: Bakri Balloon placed Estimated Blood Loss (mL): 500 Fluids Replaced: 1300 ml Description of Procedure: Patient was brought to the OR and placed in the dorsal lithotomy position and induced under MAC. An examination under anesthesia was performed with no evidence of active bleeding. Intrauterine exam was performed and an extensive complex of clots was palpable. Clots were manually evacuated from the lower uterine segment and Banjo curettage performed under US guidance to remove clots in the upper uterus that were densely adhered to the uterine wall with improvement of lower uterine segment tone. A Bakri balloon was placed under US guidance and filled with 300cc of saline. There was no significant bleeding appreciated from this site. A superficial vaginal laceration at the left hymenal rings was bleeding and reapproximated with 3-0 Vicryl Rapide with good hemostasis. Sponge and needle counts were correct x 2. Patient was awakened and transferred to recovery. - Complications None - Admit VTE Documentation VTE Present on Admission: No VTE Mechan Device Prophylaxis: SCD's VTE Pharm Prophylaxis ordered?: No
--- NOTE | 2018-12-19 21:29 | NURSING ---
Addendum for [id number]:Pt. back to room from visiting in [facility]. Reports she feels that she is bleeding as she was wheeled into room. When pt. standing next to bed to get back in, pt. had large gush of blood, leaving puddle appx. 12 in. in diameter on floor. Pt. assisted back to bed, clots noted coming out of her pad. Libra-pad changed. Weight obtained on pad. See Hemorrhage checklist for weights. Pt. feeling well, assisted with setting up pump, learning how to work pump. Pt. pumped x 16 min, reported feeling cramping with pumping. When she finished pumping, pt. reported another big gush. FF between gushes, with small trickles at times, no big gushes. Dr. Nelda Moreau contacted at 1740 about bleeding, reported a third gush per pt. and reported weights of clots over 1000 grams in room. Reported BP's - pt. with no s/s of Preeclampsia. Pt. denies lightheadedness, dizziness, or being cold at this time. Temp remains WNL. Magnesium Sulfate turned off per orders. Order for buccal cytotec given-given @ 1745. Attempts to start second IV line and collect Preeclampsia labs - difficulty with this. Oil Heaterman called to assist with IV start. Dr. Nelda Moreau to room at 1805. IM Hemabate given as ordered @ 1810. VE completed per Dr. Nelda Moreau. Pt. moved to OR @ 1815 for further evaluation and possible surgical intervention. See Hemorrhage checklist for further notes.
--- NOTE | 2018-12-19 22:26 | NURSING ---
Received report for continuation of care while patient was back in OR having Tampanade placed. Back to room at 1955 and recovery started. Tamponade draining serous fluid to bag at this time. Rajan draining clear-yellow urine. Initial vital signs for recovery were 98.2 F, 102, 18, and 139/77. 2015- Patient became very shaky, stated she cannot stop shivering. Patient's face pale. Remains oriented to person and place and denies feeling light headed or dizzy. Vital signs retaken and were 98.9 F, 111, 19, and 67/38. Dr. Trejo remains on unit and was called to bedside to assess. Verbal order received for 2 units of blood to be given at this time.
[2018-12-20] VITALS: BP 129/64; PULSE 102; RESP 18; TEMP 37.4; O2SAT 98
[2018-12-20] MEDS: oxyCODONE 5 MG Tablet PO ×5 (02:26→20:46)
[2018-12-20 04:00] VITALS: BP 129/60; PULSE 99; RESP 17; TEMP 36.8; O2SAT 97
[2018-12-20] MEDS: Levothyroxine 75 MCG Tablet PO (05:09)
[2018-12-20 05:47] LABS: Hematocrit 23.5 % (37-47); Hemoglobin 7.8 g/dl (12.0-15.0); Mean Corp Hgb Conc 33.2 g/gl (32-36); Mean Corpuscular Hgb 28.3 pg (27.0-32.0); Mean Corpuscular Volume 85.1 fL (81-99); Mean Platelet Vol. 9.8 fl (6.2-12.0); Platelet Count 181 K/mm3 (150-450); RBC Distribution Width CV 14.5 % (11.6-14.6); RBC Distribution Width SD 44.5 fl (35.1-43.9); Red Blood Count 2.76 M/mm3 (4.2-5.4); White Blood Count 14.8 K/mm3 (4.4-11.0)
[2018-12-20 06:24] LABS: Scan Indicated on CBC? Y/N NO
[2018-12-20] MEDS: Lactated Ringers 1,000 ML 100 ML IV (07:00)
[2018-12-20 08:00] VITALS: BP 125/59; PULSE 89; RESP 18; TEMP 36.9; O2SAT 95
[2018-12-20] MEDS: Ferrous Gluconate 324 MG Tablet PO ×3 (08:21→16:39)
--- NOTE | 2018-12-20 08:36 | PCM.PN.OB ---
Patient Problems: Active and Suspected Problems (Last Updated 12/17/18 @ 16:12 by Nelia Trejo MD) 39 weeks gestation of (Acute) Preeclampsia (Acute) severe features Chorioamnionitis (Acute) intra-amnionic inflammation and suspected infection Failed induction of labor (Acute) hemorrhage (Acute) Subjective: Denies lightheadedness, palpitations, chest pain, shortness of breath, headache, vision changes. She is sore this morning. No flatus yet. Looks forward to going to nursery. Objective: AVSS - Physical Exam General: Alert, Oriented x3, Cooperative, No apparent distress HEENT: Atraumatic, Normocephalic Lungs: Clear to auscultation, Normal air movement Cardiovascular: Regular rate, Regular Rhythm, Normal S1, Normal S2 Abdomen: Bowel Sounds Present, Soft, Non Tender, Non-Distended, - - Fundus firm, nontender - lochia scant Extremities: No Calf Tenderness, - - 1+ LE edema Neurological: Neuro grossly intact Psych/Mental Status: Normal Affect, Appropriate, Alert and oriented to time, place, person, mood and affect Vital Signs Temp Pulse Resp BP Pulse Ox 98.3 F 99 17 129/60 H 97 12/20/18 04:00 12/20/18 04:00 12/20/18 04:00 12/20/18 04:00 12/20/18 04:00 Oxygen Delivery Method Room Air Weight: 148.3 kg Body Mass Index (BMI) 51.2 Intake and Output for Last 24 Hours 12/18/18 12/19/18 12/20/18 23:59 23:59 23:59 Intake Total 3234 / 3234 6104 / 6104 1750 / 1750 Output Total 3725 / 3725 3050 / 3050 1300 / 1300 Balance -491 / -491 3054 / 3054 450 / 450 Laboratory Tests Past 24 Hrs 12/19/18 12/19/18 12/19/18 18:30 18:30 18:30 WBC 19.8 H RBC 3.17 L Hgb 9.0 L Hct 27.5 L MCV 86.8 MCH 28.4 MCHC 32.7 RDW 14.1 RDW Differential 42.3 Plt Count 258 MPV 10.7 Immature Gran % (Auto) 0.200 Neut % (Auto) 87.5 H Lymph % (Auto) 5.4 L Florence % (Auto) 6.7 Eos % (Auto) 0.1 Baso % (Auto) 0.1 Absolute Neuts (auto) 17.4 H Absolute Lymphs (auto) 1.07 Total Counted Not Reportable PT 14.7 INR 1.2 APTT 33.7 Fibrinogen 443 Sodium Potassium Chloride Carbon Dioxide Anion Gap BUN Creatinine Estim Creat Clear Calc Est GFR (MDRD) Af Amer Est GFR (MDRD) Non-Af BUN/Creatinine Ratio Glucose Calcium Blood Type O POSITIVE Antibody Screen NEGATIVE Crossmatch See Detail 12/19/18 12/20/18 18:30 05:15 WBC 14.8 H RBC 2.76 L Hgb 7.8 L Hct 23.5 L MCV 85.1 MCH 28.3 MCHC 33.2 RDW 14.5 RDW Differential 44.5 H Plt Count 181 MPV 9.8 Immature Gran % (Auto) Neut % (Auto) Lymph % (Auto) Florence % (Auto) Eos % (Auto) Baso % (Auto) Absolute Neuts (auto) Absolute Lymphs (auto) Total Counted PT INR APTT Fibrinogen Sodium 141 Potassium 3.2 L Chloride 110 H Carbon Dioxide 21.0 Anion Gap 10 BUN 4 L Creatinine 0.80 Estim Creat Clear Calc 107.27 Est GFR (MDRD) Af Amer 115 Est GFR (MDRD) Non-Af 95 BUN/Creatinine Ratio 5.0 L Glucose 130 H Calcium 7.3 L Blood Type Antibody Screen Crossmatch Medical Necessity - Tobacco Use Smoking Status: Former smoker Assessment/Plan All Active Problems (Last Updated 12/17/18 @ 16:12 by Nelia Trejo MD) 39 weeks gestation of (Acute) Preeclampsia (Acute) Chorioamnionitis (Acute) Failed induction of labor (Acute) hemorrhage (Acute) This is a 23 year-old, POD#1 s/p PLTCS complicated by preeclampsia, infection, hemorrhage -PPH - s/p 2U PRBC, H/H appropriate. No further evidence of bleeding, will plan to remove Bakri this evening. -No si/sx worsening preeclampsia -Routine postop care -Continue antibiotics to 24h and afebrile -Regular diet
[2018-12-20] MEDS: Prenatal Vits Tablet 1 TABLET PO (11:37)
[2018-12-20 12:00] VITALS: BP 132/88; PULSE 108; RESP 18; TEMP 36.9
[2018-12-20] MEDS: 0.9% Saline Lock 10 ML Syringe IV ×2 (15:27→21:59)
[2018-12-20 16:25] VITALS: BP 149/91; PULSE 99; RESP 18; TEMP 36.8; O2SAT 99
--- NOTE | 2018-12-20 20:20 | NURSING ---
1300:attempted to remove collins cath. Only able to remove 5 cc from syringe. Notified Henna in Dr.Holmes Moreau's office. Stating will come after hours to remove Tamponade and will assess catheter removal at that time.
[2018-12-20 22:00] VITALS: BP 133/71; PULSE 103; RESP 18; TEMP 37.4
[2018-12-21] MEDS: oxyCODONE 5 MG Tablet PO ×4 (00:44→18:10)
[2018-12-21] MEDS: 0.9% Saline Lock 10 ML Syringe IV ×2 (04:29→06:36)
[2018-12-21 04:30] VITALS: BP 146/80; PULSE 101; RESP 18; TEMP 36.8
[2018-12-21] MEDS: Levothyroxine 75 MCG Tablet PO (06:31)
[2018-12-21 08:00] VITALS: BP 125/66; PULSE 102; RESP 18; TEMP 36.4
[2018-12-21] MEDS: Ferrous Gluconate 324 MG Tablet PO ×3 (08:02→18:10)
[2018-12-21] MEDS: Prenatal Vits Tablet 1 TABLET PO (08:02)
[2018-12-21] MEDS: Senna/Docusate Sodium 1 Tablet PO (10:44)
--- NOTE | 2018-12-21 10:50 | NURSING ---
Per Dr. Jennifer Moreau's order balloon deflated in tampanod and removed. Rajan cath also removed. Pt tolerated this well.
[2018-12-21 14:11] VITALS: BP 133/98; PULSE 99; RESP 16; TEMP 37.1
--- NOTE | 2018-12-21 14:52 | PN.OBGYN_ITS ---
Patient Problems: Active and Suspected Problems (Last Updated 12/17/18 @ 16:12 by Nelia Moreau MD) 39 weeks gestation of (Acute) Preeclampsia (Acute) severe features Chorioamnionitis (Acute) intra-amnionic inflammation and suspected infection Failed induction of labor (Acute) hemorrhage (Acute) Subjective: Dorothy is sore, but pain manageable. She is out of bed and ambulating. Denies lightheadedness, shortness of breath, chest pain, headache or vision changes. She feels much better today and more energetic. Passing flatus, no bowel movement. Tolerates regular diet. Denies heavy lochia. She is nursing and pumping. Infant remains in SCN. Objective: avss - Physical Exam General: Alert, Oriented x3, Cooperative, No apparent distress HEENT: Atraumatic, Normocephalic Lungs: Clear to auscultation, Normal air movement Cardiovascular: Regular rate, Regular Rhythm, Normal S1, Normal S2 Abdomen: Bowel Sounds Present, Soft, Non Tender, Non-Distended, - - Fundus firm and nontender, lochia scant Extremities: No Calf Tenderness, - - 1+ b/l LE edema Neurological: Neuro grossly intact Psych/Mental Status: Normal Affect, Appropriate, Alert and oriented to time, place, person, mood and affect Vital Signs Temp Pulse Resp BP Pulse Ox 98.7 F 99 16 133/98 H 99 12/21/18 14:11 12/21/18 14:11 12/21/18 14:11 12/21/18 14:11 12/20/18 16:25 Oxygen Delivery Method Room Air Weight: 148.3 kg Body Mass Index (BMI) 51.2 Intake and Output for Last 24 Hours 12/19/18 12/20/18 12/21/18 23:59 23:59 23:59 Intake Total 6104 / 6104 3000 / 3000 700 / 700 Output Total 3050 / 3050 4245 / 4245 2260 / 2260 Balance 3054 / 3054 -1245 / -1245 -1560 / -1560 Medical Necessity - Tobacco Use Smoking Status: Former smoker Assessment/Plan All Active Problems (Last Updated 12/17/18 @ 16:12 by Nelia Trejo MD) 39 weeks gestation of (Acute) Preeclampsia (Acute) Chorioamnionitis (Acute) Failed induction of labor (Acute) hemorrhage (Acute) This is a 23 year-old, POD#2 s/p PLTCS complicated by preeclampsia, infection, hemorrhage -PPH - s/p 2U PRBC, H/H appropriate. No further evidence of bleeding, Bakri removed this morning. -No si/sx worsening preeclampsia -Routine postop care -Abx discontinued - pt afebrile > 24h -Regular diet -
[2018-12-21 21:30] VITALS: BP 149/92; PULSE 105; RESP 18; TEMP 37.1
--- NOTE | 2018-12-21 22:09 | DCINST_ITS ---
Discharge Diet: No Restrictions Discharge Activity: May not drive while taking narcotic pain medications., May Shower May resume sexual activity in: 6 weeks Lifting Restrictions: 10 pounds Additional Activity Instructions:: Nothing in the vagina for 6 weeks. You may return to work/school in 6 weeks. Call your doctor if your incision/area has: Continuous Slow Oozing, Sudden Increased Bleeding, Increased Pain/ Swelling, Increased Redness, Foul Smelling Discharge Call your doctor if you observe: Fever of 101 or Higher, Inability to urinate, Inability to have a bowel movement, Using more than one pad per hour, Shortness of breath, Chest pain, Calf discomfort, Uncontrolled pain Suture Line Care: Avoid Pulling/Pushing, Avoid Pinching/Bending Cleanse incision/area with: Soap & Water Additional Instructions: If you experience any of the following, contact your healthcare provider. * Bleeding that soaks a pad every hour for 2 hours * Fever 100.4 or higher * Unrelieved incision or abdominal pain * Swelling, redness, discharge or bleeding from your incision or episiotomy site * Your incision begins to separate * Problems urinating (including inability to urinate or burning while urinating). * Visual changes * Severe headache * Flu-like symptoms * Pain or redness in one of both of your breasts * Pain, warmth, tenderness or swelling in your legs, especially the calf area * Frequent nausea and vomiting * Symptoms of depression or anxiety If you experience any of the following, call 911 or go to the nearest Emergency Room. * Chest pain * Problems breathing * Seizure activity * Partial or complete paralysis of a body part, slurred speech, weakness or drooping of the face, or a sudden inability to walk or hold your balance Allergies/Adverse Reactions: Allergies No Known Allergies Allergy (Verified 12/17/18 11:15) Medications to take at Discharge Levothyroxine [Synthroid] 75 mcg PO DAILY 12/17/18 Vits [Prenatabs FA ] 1 tab PO DAILY 12/17/18 Ibuprofen [Motrin] 600 mg PO Q8H PRN #30 tablet 12/21/18 Oxycodone [Oxyir] 1 - 2 tab PO Q6H PRN PRN 7 Days #20 tablet 12/21/18 Senna/Docusate Sodium [Senokot-S] 1 - 2 tablet PO DAILY PRN #60 tablet 12/21/18 The following prescriptions were given: Oxycodone [Oxyir] 1 - 2 tab PO Q6H PRN PRN 7 Days #20 tablet PRN Reason: Mod-Severe Pain (-08/18) Ibuprofen [Motrin] 600 mg PO Q8H PRN #30 tablet PRN Reason: Pain Senna/Docusate Sodium [Senokot-S] 1 - 2 tablet PO DAILY PRN #60 tablet PRN Reason: Constipation Follow-Up: Call to make an appointment with your doctor for an incision check in 1-2 weeks. You will also need a 6 week post- follow up appointment. Test results from this visit will be discussed in further detail at your follow- up appointment, if applicable. Please Follow Up With: Nelia Trejo MD When: 2 and 6 weeks
[2018-12-22] MEDS: oxyCODONE 5 MG Tablet PO ×2 (00:52→04:46)
[2018-12-22 01:22] VITALS: BP 139/92; PULSE 101; RESP 16; TEMP 37.3
[2018-12-22] MEDS: Levothyroxine 75 MCG Tablet PO (04:46)
[2018-12-22] MEDS: Senna/Docusate Sodium 1 Tablet PO (07:54)
[2018-12-22] MEDS: Ferrous Gluconate 324 MG Tablet PO ×2 (07:54→18:08)
[2018-12-22] MEDS: Acetaminophen 500 MG Tablet 1000 MG PO (07:54)
[2018-12-22 08:00] VITALS: BP 143/90; PULSE 99; RESP 18; TEMP 36.4
--- NOTE | 2018-12-22 09:41 | PN.OBGYN_ITS ---
Patient Problems: Active and Suspected Problems (Last Updated 12/17/18 @ 16:12 by Nelia Moreau MD) 39 weeks gestation of (Acute) Preeclampsia (Acute) severe features Chorioamnionitis (Acute) intra-amnionic inflammation and suspected infection Failed induction of labor (Acute) hemorrhage (Acute) Subjective: Denies fever, chills, headache, vision changes, abdominal pain. She feels well. Denies heavy lochia. Objective: AVSS - Physical Exam General: Alert, Oriented x3, Cooperative, No apparent distress HEENT: Atraumatic, Normocephalic Lungs: Normal air movement Abdomen: Soft, Non Tender, Non-Distended, - - fundus firm and nontender Extremities: No Calf Tenderness, - - 1+ b/l LE edema Neurological: Neuro grossly intact Psych/Mental Status: Normal Affect, Appropriate, Alert and oriented to time, place, person, mood and affect Vital Signs Temp Pulse Resp BP Pulse Ox 97.5 F L 99 18 143/90 H 99 12/22/18 08:00 12/22/18 08:00 12/22/18 08:00 12/22/18 08:00 12/20/18 16:25 Oxygen Delivery Method Room Air Weight: 148.3 kg Body Mass Index (BMI) 51.2 Intake and Output for Last 24 Hours 12/20/18 12/21/18 12/22/18 23:59 23:59 23:59 Intake Total 3000 / 3000 700 / 700 Output Total 4245 / 4245 2985 / 2985 Balance -1245 / -1245 -2285 / -2285 Medical Necessity - Tobacco Use Smoking Status: Former smoker Assessment/Plan All Active Problems (Last Updated 12/17/18 @ 16:12 by Nelia Trejo MD) 39 weeks gestation of (Acute) Preeclampsia (Acute) Chorioamnionitis (Acute) Failed induction of labor (Acute) hemorrhage (Acute) This is a 23 year-old, POD#3 s/p PLTCS complicated by preeclampsia, infection, hemorrhage -PPH - s/p 2U PRBC, H/H appropriate. No further evidence of bleeding. -No si/sx worsening preeclampsia -Routine postop care -Abx discontinued - pt afebrile -Regular diet - -d/c home today
[2018-12-22] MEDS: Prenatal Vits Tablet 1 TABLET PO (10:02)
[2018-12-22] MEDS: Ibuprofen 600 MG Tablet PO ×2 (10:02→17:34)
[2018-12-22 18:09] VITALS: BP 130/90; BP 146/95; PULSE 94; RESP 16; TEMP 36.2
--- NOTE | 2018-12-23 11:30 | CASEMGMT ---
Social Work Assessment Labor and Delivery Unit Date of Intervention: 12/23/2018 Time of Intervention: [id number] Reason for Referral: admitted to [facility]; first time parents. Presenting situation: Patient/mother of baby (ARETHA) was discharged from labor and delivery on 12.22.2018 but remains at [facility], staying in a courtesy room while Baby girl Lorna Camargo admitted to [facility] for issues relating to Hypoglycemia and suspected sepsis. MOB remains at [facility] to be able to provide care and bonding to the baby. History obtained from: Medical record and mother of baby (ARETHA) Dorothy Camargo. This radio script writer as the experimental worker to the hospital of delivery labor and delivery unit also provides social work to the [facility] for continuity of care of families admitted into the [facility]. Household composition: ARETHA De La Cruz and FOB Basim Camargo. Patient's parent/guardian status: MOB is age 23 and FOB are for the last 2.5 years. No reports or indication of domestic violence concerns. MOB denies any safety concerns in the home. baby Lorna is the first child for both. Medical History: MOB is G1, P0 to 1 after delivery Lorna. care started at 12 weeks gestation care adequate. Per record, MOB with gestational HTN issues. Delivery for Lorna was via MALINDA Caesarian section. Baby born at 39 weeks. Apgars 2-9-9 at 1-5-10 minutes of life. weight 7 pounds 9 ounces. Educational Status: MOB completed through the 9th grade. Reports to be able to read, write, and to understand what is read. 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 Infant Supplies: Reports to have needed supplies including bassinet, car seat, clothing, diapers, wipes to get started. Planning to breast feed. Childcare/Caregiver(s): MOB and then help from family and FOB. Transportation: No reported issues. MOB and FOB both drive. Programs/Agencies Involved: No agency involvement but accepting of experimental worker providing resource lists. Behavioral Health Issues: Denies history of depression, anxiety, or other mental health issues. care reflects that MOB had a Simon depression screen on 06.11.2018 with a score of 2 (negative for depressive symptoms). MOB denies any history of alcohol or illicit substance use. Nonuser of tobacco. No drug testing noted in record for MOB or baby. Family Stressors: No family stressors identified. MOB admits some stress from having baby admitted to [facility], that course of delivery did not go as expected. Support Systems: FOB, MOB's mother and sister are all reported to be good and positive supports to MOB. Assessment MOB friendly and cooperative with social work visit. Reports to feel connected to the baby, and admits that [facility] stay has been stressful but feels as if coping well overall. MOB looking forward to be able to return home. MOB reports to have needed supplies and will have help from family at home going. MOB listened to education on depression risk, and voices understanding of importance e to seek out help and support should symptoms arise. MOB declines referrals to [facility] or other resources but accepting of taking the information home if needed or desired in the future. No concerns voiced or identified by nursing staff regarding parent/child interactions. Emotional support offered to MOB this date. Plan MOB has been discharged as a patient. Baby to home from the [facility] when ready for discharge. MOB has been given [facility] resource list, information on shaken baby prevention, safe sleeping handouts, and depression packet. -PEREZ Jones, DRILLER'S OFFSIDER
[2018-12-30 10:44] LABS: Pathology Specimen OB SEE PATHOLOGY REPORT
== END 2018-12-22 18:15 | disposition home or self-care (01) | DRG 786 ==
PROVIDERS: Admitting Provider Obstetrics & Gynecology; Referring Provider Obstetrics & Gynecology; Visit Provider Obstetrics & Gynecology
DX: O75.2 Pyrexia during labor, not elsewhere classified (principal); O41.1230 Chorioamnionitis, third trimester, not applicable or unspecified; O72.2 Delayed and secondary postpartum hemorrhage; O71.4 Obstetric high vaginal laceration alone; O14.14 Severe pre-eclampsia complicating childbirth; O99.284 Endocrine, nutritional and metabolic diseases complicating childbirth; E03.9 Hypothyroidism, unspecified; O76 Abnormality in fetal heart rate and rhythm complicating labor and delivery; O61.0 Failed medical induction of labor; O69.81X0 Labor and delivery complicated by cord around neck, without compression, not applicable or unspecified; Z3A.39 39 weeks gestation of pregnancy; Z37.0 Single live birth; Z79.899 Other long term (current) drug therapy; Z87.891 Personal history of nicotine dependence
CPT/HCPCS: 59025; 59050; 80048; 82565; 82570; 84112; 84156; 84450; 84460; 84550; 85025; 85027; 85384; 85610; 85730; 86850; 86900; 86920; 86922; 99218; J7120; P9016; A4216; G0378; J2405

== ENCOUNTER → 2018-12-27 15:43 | Outpatient (CLI) | payer SELFPAY ==
[2018-12-17 11:15] VITALS: BMI 51.2
[2018-12-27 17:22] LABS: Hematocrit 30.9 % (37-47); Hemoglobin 10.2 g/dl (12.0-15.0); Mean Corpuscular Hgb 28.3 pg (27.0-32.0); Mean Corpuscular Volume 85.8 fL (81-99); Mean Platelet Vol. 9.3 fl (6.2-12.0); Platelet Count 434 K/mm3 (150-450); RBC Distribution Width CV 13.8 % (11.6-14.6); White Blood Count 7.8 K/mm3 (4.4-11.0)
[2018-12-27 17:24] LABS: Scan Indicated on CBC? Y/N NO
[2018-12-27 17:40] LABS: ALB/GLOB Ratio 0.7 RATIO (0.9-2.4); AST(SGOT) 11 U/L (15-37); Alanine Aminotransfer ALT/SGPT 28 U/L (13-56); Albumin, Serum 2.9 g/dL (3.2-5.0); Alkaline Phosphatase 99 U/L (45-117); Anion Gap 10 (5-15); BUN 11 mg/dL (7-18); BUN/Creat Ratio 14.7 RATIO (10-20); Calcium,Total 9.1 mg/dL (8.5-10.1); Chloride 104 mmol/L (98-107); Creatinine, Serum 0.75 mg/dL (0.55-1.02); EST Glomerular Filtration Rate 102 mL/min (>60); Est Glom Filt Rate - Afr Amer 124 mL/min (>60); Glucose 78 mg/dL (74-106); Potassium 3.3 mmol/L (3.5-5.1); Protein, Total 6.9 g/dL (6.4-8.2); Sodium Level 140 mmol/L (136-145); Uric Acid 8.3 mg/dL (2.6-6.0)
== END ==
PROVIDERS: Visit Provider Obstetrics & Gynecology
DX: O14.90 Unspecified pre-eclampsia, unspecified trimester (principal); Z3A.00 Weeks of gestation of pregnancy not specified
CPT/HCPCS: 36415; 80053; 84550; 85027

== ENCOUNTER 2019-04-16 12:06 | Emergency (ER) | payer SELFPAY ==
[2019-04-16 12:06] VITALS: BP 153/86; PULSE 89; RESP 18; TEMP 36.3; O2SAT 98; BMI 43.0
--- NOTE | 2019-04-16 13:14 | ED.VISSUMM ---
- ER Visit Summary Date of Service: 04/16/19 Chief Complaint: Left hip back pain History of Present Illness: The patient is a 23 F who states that she had a about 3 months ago. She is breast-feeding. She states that she has had several episodes where she will get a pain in the low back and left buttock hip region and she is gone to see a chiropractor and got an adjustment and is felt better. She states that she had same happened on but she did not feel the way better. Today she went to get off the toilet and had extreme pain in the same area. She has not seen her primary care physician for this. She took ibuprofen this morning. She notes radiation down the back of her leg. She states that her toes are tingling. Physical Examination: Afebrile vital signs are stable Gen: Well-nourished well-developed Head: Normocephalic atraumatic Eyes: Perrl EOMI ENT: TMs clear no rhinorrhea moist mucous membranes Neck: Supple no lymphadenopathy no JVD nontender CVS: Regular rate rhythm no murmurs normal S1-S2 Respiratory: No distress clear to auscultation bilaterally chest nontender Abdomen: Soft nontender nondistended normal bowel sounds no masses Back: Nontender Extremity: Pain in the left gluteus piriformis region. Mild tenderness over the lateral aspect of the hip. Skin: Normal color no rash Neuro: alert orientated ?3 CN II-XII intact normal strength sensation reflexes Psych: Patient is crying but can stop crying to talk. Emergency Department Course and Treatment: Patient received a dose of Toradol, Valium and [place]. Impression: 1. Left sciatica This note was generated with [employer] dictation software. It may contain incorrect words, spelling, and punctuation that were not noted in review of the chart prior to signing ED Disposition - Plan for ED Patient: Disposition: Home or Assisted Living Instructions: ED Sciatica Prescriptions: Hydrocodone Bitart/Apap 5-325 [[place] 5MG-325MG] 1 tab PO Q6H PRN PRN 3 Days #12 tab PRN Reason: Pain Diazepam [Valium] 5 mg PO Q8 PRN #15 tab PRN Reason: Muscle Spasm Ibuprofen [Motrin] 800 mg PO TID #20 tab Referrals: Dewey Kilgore [Primary Care Provider] - 1 Week
--- NOTE | 2019-04-16 13:17 | ED.DCSUM_ITS ---
- ER Visit Summary Date of Service: 04/16/19 Chief Complaint: Left hip back pain History of Present Illness: The patient is a 23 F who states that she had a C- section about 3 months ago. She is breast-feeding. She states that she has had several episodes where she will get a pain in the low back and left buttock hip region and she is gone to see a chiropractor and got an adjustment and is felt better. She states that she had same happened on but she did not feel the way better. Today she went to get off the toilet and had extreme pain in the same area. She has not seen her primary care physician for this. She took ibuprofen this morning. She notes radiation down the back of her leg. She states that her toes are tingling. Physical Examination: Afebrile vital signs are stable Gen: Well-nourished well-developed Head: Normocephalic atraumatic Eyes: Perrl EOMI ENT: TMs clear no rhinorrhea moist mucous membranes Neck: Supple no lymphadenopathy no JVD nontender CVS: Regular rate rhythm no murmurs normal S1-S2 Respiratory: No distress clear to auscultation bilaterally chest nontender Abdomen: Soft nontender nondistended normal bowel sounds no masses Back: Nontender Extremity: Pain in the left gluteus piriformis region. Mild tenderness over the lateral aspect of the hip. Skin: Normal color no rash Neuro: alert orientated ?3 CN II-XII intact normal strength sensation reflexes Psych: Patient is crying but can stop crying to talk. Emergency Department Course and Treatment: Patient received a dose of Toradol, Valium and [place]. Impression: 1. Left sciatica This note was generated with [employer] dictation software. It may contain incorrect words, spelling, and punctuation that were not noted in review of the chart prior to signing ED Disposition - Plan for ED Patient: Disposition: Home or Assisted Living Instructions: ED Sciatica Prescriptions: Hydrocodone Bitart/Apap 5-325 [[place] 5MG-325MG] 1 tab PO Q6H PRN PRN 3 Days #12 tab PRN Reason: Pain Diazepam [Valium] 5 mg PO Q8 PRN #15 tab PRN Reason: Muscle Spasm Ibuprofen [Motrin] 800 mg PO TID #20 tab Referrals: Dewey Kilgore [Primary Care Provider] - 1 Week
[2019-04-16] MEDS: HYDROcodone Bitartrate/Apap 5/325 Tablet PO (13:19)
[2019-04-16] MEDS: diazePAM 5 MG Tablet PO (13:19)
[2019-04-16] MEDS: Ketorolac 60 MG/2 ML Vial IM (13:20)
[2019-04-16 14:26] VITALS: BP 129/67; PULSE 84; RESP 16; O2SAT 98
== END 2019-04-16 14:28 | disposition home or self-care (01) ==
PROVIDERS: Emergency Provider Emergency Medicine; Family Provider Family Medicine; PCP Family Medicine
DX: M54.32 Sciatica, left side (principal); E66.9 Obesity, unspecified; Z72.0 Tobacco use
CPT/HCPCS: 96372; 99283; A4216

== ENCOUNTER → 2021-06-04 15:56 | Outpatient (CLI) | payer SELFPAY ==
[2021-06-07 03:07] LABS: Chlamydia By Nucleic Acid AMP Negative (Negative)
[2021-06-07 10:22] LABS: Gonococcus By Nucleic Acid AMP Negative (Negative)
[2021-06-09 20:12] LABS: HPV Reflexed? NOT INDICATED
== END ==
PROVIDERS: PCP Family Medicine; Visit Provider Obstetrics & Gynecology
DX: Z34.81 Encounter for supervision of other normal pregnancy, first trimester (principal)
CPT/HCPCS: 87086; 87088; 87491; 87591; 88175; G0145

== ENCOUNTER → 2021-06-06 16:35 | Outpatient (CLI) | payer SELFPAY ==
[2021-06-06 17:19] LABS: Color, Urine Yellow (Yellow); Glucose, Dipstick Normal (Normal); Ketone-Dipstick Negative (Negative); Leukocyte Esterase-Dipstick 25 /ul (Negative); Nitrite-Dipstick Negative (Negative); Occult Blood-Urine 10 /ul (Negative); Protein-Dipstick Negative (Negative); Urine Bilirubin Dipstick Negative (Negative); Urine Clarity Cloudy (Clear); Urine Urobilinogen Normal (Normal)
[2021-06-06 17:23] LABS: Absolute Lymphocyte Count 2.42 X10^3/uL (0.83-4.51); Absolute Neutrophil Count 5.8 X10^3/uL (2.0-7.7); Basophil# 0.03 X10^3/uL; Basophil% 0.3 % (0-1); Eosinophil# 0.06 X10^3/uL; Eosinophils% 0.7 % (0-5); Hematocrit 38.4 % (37-47); Hemoglobin 12.6 g/dL (12.0-15.0); Lymphocyte # 2.42 X10^3/ul (0.83-4.51); Lymphocyte % 26.9 % (19-41); Mean Corp Hgb Conc 32.8 g/dL (32-36); Mean Corpuscular Hgb 27.6 pg (27.0-32.0); Mean Corpuscular Volume 84.2 fL (81-99); Monocyte# 0.65 X10^3/uL; Monocyte% 7.2 % (0-10); NRBC Flagged by Analyzer 0 % (0-5); Neutrophil # 5.78 X10^3/uL (2.7-7.7); Neutrophil % 64.5 % (47-70); Platelet Count 305 K/mm3 (150-450); RBC Distribution Width CV 13.2 % (11.6-14.6); RBC Distribution Width SD 40.7 fl (35.1-43.9); Red Blood Count 4.56 M/mm3 (4.2-5.4)
[2021-06-06 18:02] LABS: Thyroid Stim Hormone (TSH) 2.33 uIU/mL (0.358-3.74)
[2021-06-07 08:59] LABS: HIV - WCH Non-Reactive (Nonreactive); Hepatitis B Surface Antigen Non-Reactive (Nonreactive); Hepatitis C Antibody Non-Reactive (Nonreactive); Rubella IgG Reactive (Nonreactive); Syphilis Antibodies Non-reactive
== END ==
PROVIDERS: PCP Family Medicine; Visit Provider Obstetrics & Gynecology
DX: Z34.81 Encounter for supervision of other normal pregnancy, first trimester (principal)
CPT/HCPCS: 36415; 81002; 84443; 85025; 86703; 86762; 86780; 86803; 87340